=== PATIENT | female | born 1985 | race Caucasian/White ===

== ENCOUNTER 2020-11-19 03:11 | Emergency (ER) | payer MEDICARE, OTHER ==
[2020-11-19] MEDS ORDERED: BACTRIM DS TAB1 EACH PO (04:03)
[2020-11-19] MEDS ORDERED: CEPHALEXIN500 MG PO (04:03)
== END 2020-11-19 04:05 | disposition home or self-care (01) ==
LOC: ER1 03:11
DX: N61.1 Abscess of the breast and nipple (principal); F17.210 Nicotine dependence, cigarettes, uncomplicated
CPT/HCPCS: 10060; 87070; 87077; 87186; 87205; 99283